=== PATIENT | male | born 1965 | race American Indian/Alaskan Native ===

== ENCOUNTER 2017-01-10 08:16 | Outpatient (CLI) | payer BC ==
--- NOTE | 2017-01-10 08:30 | XRay Report ---
RIGHT ANKLE, 3 views: History: right ankle pain. There is severe diffuse soft tissue swelling. Normal bone mineralization. There is an approximate 5 mm bony density just distal to the medial malleolus. I suspect this represents an ossicle although an avulsion fracture is not entirely excluded. The remaining bony structures are unremarkable. Normal joint space. IMPRESSION: Severe soft tissue swelling. Questionable 5 mm bony density distal to the medial malleolus. Small ossicle versus avulsion injury. Please correlate with the patient.
== END 2017-01-10 08:17 | disposition home or self-care (01) ==
LOC: SPVIMAG 08:16
PROVIDERS: ATTEND Orthopaedic Surgery
DX: M25.571 Pain in right ankle and joints of right foot (principal); M25.471 Effusion, right ankle